=== PATIENT | female | born 1965 | race Caucasian/White ===

== ENCOUNTER 2018-06-10 10:32 | Emergency (ER) | payer OTHER ==
[~2018-06-10] VITALS: Ht 152.4 cm; Wt 64.0 kg
[2018-06-10 10:43] VITALS: Ht 152.4 cm; Wt 64.0 kg
[2018-06-10 13:13] VITALS: BP 107/75
== END 2018-06-10 13:13 | disposition home or self-care (01) ==
LOC: ED 10:32
DX: N39.0 Urinary tract infection, site not specified (principal); I10 Essential (primary) hypertension; E11.9 Type 2 diabetes mellitus without complications; E78.00 Pure hypercholesterolemia, unspecified; E03.9 Hypothyroidism, unspecified

== ENCOUNTER 2018-07-24 19:19 | Emergency (ER) | payer OTHER ==
[~2018-07-24] VITALS: Ht 149.9 cm; Wt 64.5 kg
[2018-07-24 19:36] VITALS: Ht 149.9 cm; Wt 64.5 kg
[2018-07-24 22:25] VITALS: BP 128/64
== END 2018-07-24 22:25 | disposition home or self-care (01) ==
LOC: ED 19:19
DX: J18.9 Pneumonia, unspecified organism (principal); I10 Essential (primary) hypertension; E11.9 Type 2 diabetes mellitus without complications; E78.00 Pure hypercholesterolemia, unspecified; E03.9 Hypothyroidism, unspecified; M54.9 Dorsalgia, unspecified
CPT/HCPCS: J0696; Q0092

== ENCOUNTER 2019-01-01 15:52 | Emergency (ER) | payer MEDICAID ==
[~2019-01-01] VITALS: Ht 152.4 cm; Wt 67.6 kg
[2019-01-01 16:31] VITALS: Ht 152.4 cm; Wt 67.6 kg
[2019-01-01 17:26] LABS: BASOPHIL % 0.4 % (0-2); PLATELET COUNT 205 x10^3mcL (130-400); RED CELL DISTRIBUTION WIDTH 13.5 % (11.5-14.5)
[2019-01-01 17:33] LABS: CALCIUM 9.4 mg/dL (8.5-10.1); CARBON DIOXIDE 25.2 mmol/L (21-32); CHLORIDE SERUM 100 mmol/L (98-107); CREATININE SERUM 0.8 mg/dL (0.6-1.0); GFR1 > 60 mL/min; GLUCOSE SERUM 167 mg/dL (74-106); POTASSIUM SERUM 3.7 mmol/L (3.5-5.1); SODIUM SERUM 136 mmol/L (136-145)
[2019-01-01 17:38] LABS: ALBUMIN 3.6 g/dL (3.4-5.0); ALKALINE PHOSPHATASE 111 U/L (46-116); ALT/SGPT 34 U/L (14-59); AST/SGOT 27 U/L (15-37); BILIRUBIN TOTAL 0.65 mg/dL (0.20-1.00); TOTAL PROTEIN, SERUM 8.9 g/dL (6.4-8.2)
[2019-01-01 20:40] VITALS: BP 98/53
[2019-01-01 20:44] LABS: microscopic required? YES; urine erythrocyte 2+ (NEGATIVE)
== END 2019-01-01 20:40 | disposition home or self-care (01) ==
LOC: ED 15:52
PROVIDERS: Emergency Medicine
DX: R10.9 Unspecified abdominal pain (principal); R68.83 Chills (without fever); Z00.01 Encounter for general adult medical examination with abnormal findings
CPT/HCPCS: J0696; J1885; J7030; Q0092

== ENCOUNTER 2019-01-02 15:55 | Emergency (ER) | payer MEDICAID ==
[~2019-01-02] VITALS: Ht 152.4 cm; Wt 67.6 kg
[2019-01-02 16:00] VITALS: Ht 152.4 cm; Wt 67.6 kg
[2019-01-02 18:11] LABS: BASOPHIL % 0.3 % (0-2); PLATELET COUNT 197 x10^3mcL (130-400); RED CELL DISTRIBUTION WIDTH 13.9 % (11.5-14.5)
[2019-01-02 18:20] LABS: CARBON DIOXIDE 21.7 mmol/L (21-32); CHLORIDE SERUM 101 mmol/L (98-107); CREATININE SERUM 0.8 mg/dL (0.6-1.0); GFR1 > 60 mL/min; GLUCOSE SERUM 175 mg/dL (74-106); POTASSIUM SERUM 3.3 mmol/L (3.5-5.1); SODIUM SERUM 134 mmol/L (136-145)
[2019-01-02 18:25] LABS: ALKALINE PHOSPHATASE 95 U/L (46-116); ALT/SGPT 27 U/L (14-59); AST/SGOT 29 U/L (15-37); BILIRUBIN TOTAL 0.61 mg/dL (0.20-1.00); TOTAL PROTEIN, SERUM 7.8 g/dL (6.4-8.2)
[2019-01-02 18:26] LABS: ALBUMIN 3.1 g/dL (3.4-5.0)
[2019-01-02 19:23] VITALS: BP 121/60
== END 2019-01-02 19:23 | disposition home or self-care (01) ==
LOC: ED 15:55
PROVIDERS: Specialist
DX: Z00.01 Encounter for general adult medical examination with abnormal findings (principal); I10 Essential (primary) hypertension; E11.9 Type 2 diabetes mellitus without complications; E78.00 Pure hypercholesterolemia, unspecified; E03.9 Hypothyroidism, unspecified
CPT/HCPCS: J0696; J7040; J7060

== ENCOUNTER 2019-03-02 11:40 | Emergency (ER) | payer MEDICAID ==
[~2019-03-02] VITALS: Ht 149.9 cm; Wt 68.5 kg
[2019-03-02 11:46] VITALS: Ht 149.9 cm; Wt 68.5 kg
[2019-03-02 12:37] LABS: BASOPHIL % 0.7 % (0-2); PLATELET COUNT 224 x10^3mcL (130-400); RED CELL DISTRIBUTION WIDTH 14.5 % (11.5-14.5)
[2019-03-02 12:59] LABS: CALCIUM 8.5 mg/dL (8.5-10.1); CARBON DIOXIDE 21.6 mmol/L (21-32); CHLORIDE SERUM 104 mmol/L (98-107); CREATININE SERUM 0.8 mg/dL (0.6-1.0); GFR1 > 60 mL/min; GLUCOSE SERUM 315 mg/dL (74-106); POTASSIUM SERUM 3.8 mmol/L (3.5-5.1); SODIUM SERUM 137 mmol/L (136-145)
[2019-03-02 13:04] LABS: ALKALINE PHOSPHATASE 114 U/L (46-116); ALT/SGPT 23 U/L (14-59); AST/SGOT 20 U/L (15-37); BILIRUBIN TOTAL 0.3 mg/dL (0.20-1.00); TOTAL PROTEIN, SERUM 8.2 g/dL (6.4-8.2)
[2019-03-02 13:05] LABS: ALBUMIN 3.3 g/dL (3.4-5.0)
[2019-03-02 13:58] VITALS: BP 133/62
== END 2019-03-02 14:48 | disposition home or self-care (01) ==
LOC: ED 11:40
PROVIDERS: Emergency Medicine
DX: R51 Headache (principal); E11.65 Type 2 diabetes mellitus with hyperglycemia; I10 Essential (primary) hypertension; E11.9 Type 2 diabetes mellitus without complications; E78.00 Pure hypercholesterolemia, unspecified; E03.9 Hypothyroidism, unspecified; M54.2 Cervicalgia
CPT/HCPCS: J1885; J2765